=== PATIENT | male | born 1965 | race Caucasian/White ===

== ENCOUNTER 2025-04-22 14:36 | Emergency (ER) | payer OTHER ==
[2025-04-22] MEDS ORDERED: Lidocaine 2% PF 100 mg/5 ml Syringe ONE (16:02)
== END 2025-04-22 18:25 ==
LOC: ERS 14:36
DX: M25.462 Effusion, left knee (principal); I10 Essential (primary) hypertension; K21.9 Gastro-esophageal reflux disease without esophagitis; Z87.891 Personal history of nicotine dependence; Z79.899 Other long term (current) drug therapy; Z79.82 Long term (current) use of aspirin
CPT/HCPCS: 20611; 93005; J2003; J3301